=== PATIENT | female | born 1995 | race Caucasian/White ===

== ENCOUNTER 2020-02-26 02:48 | Emergency (ER) | payer SELFPAY ==
[~2020-02-26] VITALS: Ht 160 cm; Wt 59.0 kg
[2020-02-26 02:50] VITALS: BP 116/67
[2020-02-26] MEDS ORDERED: IBUP-1007 PO (03:24)
[2020-02-26] MEDS ORDERED: SULF1TAB24 PO (03:24)
[2020-02-26] MEDS ORDERED: CEPH500T PO (03:24)
--- NOTE | 2020-02-26 03:24 | PHYS DOC ---
Past Medical History Past Medical History: No Pertinent History Past Surgical History: No Surgical History Smoking Status: Never Smoker Alcohol Use: Occasionally Drug Use: Marijuana General Adult EDM: Chief Complaint: ABSCESS HPI: HPI: Patient is a 25 year old female who presented to ER for evaluation of infection on the right arm. Patient admitted on injected her right arm with some drug 2 days ago. Today, that area became swelling, red and tender. Patient denied any fever. Patient says she used a clean needle. Patient denies any chest pain, no trouble breathing. Patient denies any fever. Review of Systems: Review of Systems: Constitutional: Denies fever or chills. [] Eyes: Denies change in visual acuity. [] HENT: Denies nasal congestion or sore throat. [] Respiratory: Denies cough or shortness of breath. [] Cardiovascular: Denies chest pain or edema. [] GI: Denies abdominal pain, nausea, vomiting, bloody stools or diarrhea. [] : Denies dysuria. [] Musculoskeletal: Denies back pain or joint pain. [] Integument: positive for tender wound on right distal arm area. Neurologic: Denies headache, focal weakness or sensory changes. [] Endocrine: Denies polyuria or polydipsia. [] Lymphatic: Denies swollen glands. [] Psychiatric: Denies depression or anxiety. [] Heart Score: Risk Factors: Risk Factors: DM, Current or recent (<one month) smoker, HTN, HLP, family history of CAD, obesity. Risk Scores: Score 0 - 3: 2.5% MACE over next 6 weeks - Discharge Home Score 4 - 6: 20.3% MACE over next 6 weeks - Admit for Clinical Observation Score 7 - 10: 72.7% MACE over next 6 weeks - Early Invasive Strategies Current Medications: Current Medications Medications (Trade) Dose Ordered Sig/Major Start Time Stop Time Status Last Admin Dose Admin Cephalexin HCl (Keflex) 500 mg 1X ONCE 02/26/20 03:30 02/26/20 03:31 Ibuprofen (Motrin) 600 mg 1X ONCE 02/26/20 03:30 02/26/20 03:31 Trimethoprim/ Sulfamethoxazole (Bactrim Ds) 1 tab 1X ONCE 02/26/20 03:30 02/26/20 03:31 Allergies: Allergies: Allergies Coded Allergies Type Severity Reaction Last Updated Verified No Known Drug Allergies 07/14/15 No Physical Exam: PE: Constitutional: Well developed, well nourished, no acute distress, non-toxic appearance. [] HENT: Normocephalic, atraumatic, bilateral external ears normal, oropharynx moist, no oral exudates, nose normal. [] Eyes: PERRLA, EOMI, conjunctiva normal, no discharge. [] Neck: Normal range of motion, no tenderness, supple, no stridor. [] Cardiovascular:Heart rate regular rhythm, no murmur [] Lungs & Thorax: Bilateral breath sounds clear to auscultation [] Abdomen: Bowel sounds normal, soft, no tenderness, no masses, no pulsatile masses. [] Skin: There is a tender, warm swelling area at the right antecubital fossa area. NO induration. Back: No tenderness, no CVA tenderness. [] Extremities: No tenderness, no cyanosis, no clubbing, ROM intact, no edema. [] Neurologic: Alert and oriented X 3, normal motor function, normal sensory function, no focal deficits noted. [] Psychologic: Affect normal, judgement normal, mood normal. [] Current Patient Data: Vital Signs: Vital Signs Date Time Temp Pulse Resp B/P (MAP) Pulse Ox O2 Delivery O2 Flow Rate FiO2 02/26/20 02:50 98.1 102 18 116/67 (83) 100 Room Air 98.1 EKG: EKG: [] Radiology/Procedures: Radiology/Procedures: [] Course & Med Decision Making: Course & Med Decision Making Pertinent Labs and Imaging studies reviewed. (See chart for details) Patient is a 25-year-old female who sustained cellulitis at the right antecubital fossa area due to injecting drugs into her brachiocephalic vein. The swelling is very localized, no evidence of DVT. We will treat patient with antibacterial medication, and anti-inflammatory medication. Dragon Disclaimer: Dragon Disclaimer: This electronic medical record was generated, in whole or in part, using a voice recognition dictation system. Departure Departure Impression: Primary Impression: Cellulitis of arm, right Disposition: 01 DC HOME SELF CARE/HOMELESS Condition: STABLE Referrals: NO PCP (PCP) follow up with your doctor in 2 days for wound recheck. Patient Instructions: Cellulitis Additional Instructions: Thank you for visiting our Emergency Department. We appreciate you trusting us with your care. If any additional problems come up don't hesitate to return to visit us. Please follow up with your primary care provider so they can plan additional care if needed and know about the problem that you had. If symptoms worsen come back to the Emergency Department. Any concerning symptoms that start such as chest pain, shortness of air, weakness or numbness on one side of the body, running high fevers or any other concerning symptoms return to the ER. Scripts Ibuprofen (IBUPROFEN) 600 Mg Tablet 600 MG PO PRN Q8HRS PRN for pain, inflammation, #30 TAB Prov: JAZMYN BRIONES DO 02/26/20 Sulfamethoxazole/Trimethoprim (BACTRIM DS TABLET) 1 Each Tablet 1 TAB PO BID for 10 Days, #20 TAB 0 Refills Prov: JAZMYN BRIONES DO 02/26/20 Cephalexin (CEPHALEXIN) 500 Mg Tablet 1 TAB PO QID for 10 Days, #40 TAB Prov: JAZMYN BRIONES DO 02/26/20 JAZMYN BRIONES DO Feb 26, 2020 03:24
[2020-02-26] MEDS ORDERED: IBUPROFEN 200 MG TABLET. PO ONE (03:30)
[2020-02-26] MEDS ORDERED: SMZ/TMP 800/160MG TABLET. PO ONE (03:30)
[2020-02-26] MEDS ORDERED: CEPHALEXIN 250 MG CAPSULE. PO ONE (03:30)
== END 2020-02-26 03:40 | disposition home or self-care (01) ==
LOC: ER 02:48
DX: L03.113 Cellulitis of right upper limb (principal)
CPT/HCPCS: 99284